=== PATIENT | male | born 1970 | race Caucasian/White ===

== ENCOUNTER 2019-09-06 00:53 | Emergency (ER) | payer OTHER ==
[~2019-09-06] VITALS: Ht 182.9 cm; Wt 76.2 kg
[2019-09-06] MEDS ORDERED: KETO10TA2 PO (05:40)
== END 2019-09-06 06:01 | disposition home or self-care (01) ==
LOC: ER 00:53
DX: S50.01XA Contusion of right elbow, initial encounter (principal); S20.212A Contusion of left front wall of thorax, initial encounter; V18.2XXA Unspecified pedal cyclist injured in noncollision transport accident in nontraffic accident, initial encounter; Y93.89 Activity, other specified; Y92.89 Other specified places as the place of occurrence of the external cause; Y99.8 Other external cause status